=== PATIENT | female | born 1980 | race Caucasian/White ===

== ENCOUNTER 2021-02-25 21:10 | Emergency (ER) | payer OTHER ==
[~2021-02-25] VITALS: Ht 154.9 cm; Wt 83.5 kg
[2021-02-25] MEDS ORDERED: SYNTHROID112 MC1 PO (21:26)
[2021-02-25] MEDS ORDERED: ADDERALL 30 MG30 MG PO (21:26)
[2021-02-25] MEDS ORDERED: VYVANSE60 MG PO (21:26)
[2021-02-25] MEDS ORDERED: PRILOSEC OTC20 MG PO (21:27)
[2021-02-25] MEDS ORDERED: CLONAZEPAM 0.50.5 M1 PO (21:27)
[2021-02-25] MEDS ORDERED: WELLBUTRIN SR150 MG PO (21:28)
[2021-02-25] MEDS ORDERED: CYTOMEL50 MCG PO (21:28)
[2021-02-25] MEDS ORDERED: CYCLOBENZAPRINE5 MG PO (23:32)
[2021-02-25 23:44] VITALS: BP 158/101
== END 2021-02-25 23:46 | disposition home or self-care (01) ==
LOC: M.ERS 21:10
DX: T14.90XA Injury, unspecified, initial encounter (principal); M54.2 Cervicalgia; M54.9 Dorsalgia, unspecified; I10 Essential (primary) hypertension; F41.9 Anxiety disorder, unspecified; K21.9 Gastro-esophageal reflux disease without esophagitis; F90.9 Attention-deficit hyperactivity disorder, unspecified type; Z98.890 Other specified postprocedural states; Z98.51 Tubal ligation status; Z79.899 Other long term (current) drug therapy; Z88.8 Allergy status to other drugs, medicaments and biological substances; V89.2XXA Person injured in unspecified motor-vehicle accident, traffic, initial encounter; Y93.89 Activity, other specified; Y92.89 Other specified places as the place of occurrence of the external cause; Y99.8 Other external cause status